=== PATIENT | female | born 1990 | race American Indian/Alaskan Native ===

== ENCOUNTER 2020-07-21 09:23 | Inpatient (IN) | payer MEDICAID ==
--- NOTE | 2020-07-14 12:39 | History and Physical Report ---
History of Present Illness Date of examination: 07/14/20 History of present illness: PT is a who will be at 39w 3d on 07/21 when she will present for her RLTCS. No significant issues during preg. She was sent to cardiology during preg for possible murmur. Echo was WNL. PT has anemia and low Vit D. GBS posi tive. Past History Past Medical History: other (scoliosis, anemia during preg.) Past Surgical History: section Social history: no significant social history - Obstetrical History Expected Date of Delivery: 07/25/20 Actual Gestation: 38 Week(s) 3 Day(s) Hx # Term Pregnancies: 1 Spontaneous Abortions: 3 Number of Living Children: 1 Medications and Allergies Allergies Allergy/AdvReac Type Severity Reaction Status Date / Time Penicillins Allergy Hives Verified 07/07/20 15:50 Review of Systems All systems: negative (except HPI) - Physical Exam Cardiovascular: Regular rate Lungs: Positive: Clear to auscultation, Normal air movement - Obstetrical FHR comments: 150s Results All other labs normal. Assessment and Plan - Patient Problems (1) Previous delivery affecting Status: Acute Plan to address problem: PT for RTLCS on 07/21.
[2020-07-21] MEDS ORDERED: METOCLOPRAMIDE 10 MG/2 ML INJ IV SCH (10:30)
[2020-07-21] MEDS ORDERED: FAMOTIDINE 20 MG/2 ML INJ IV SCH (10:30)
[2020-07-21] MEDS ORDERED: BICITRA ORAL LIQD 30ML PO ONE (10:35)
[2020-07-21] MEDS ORDERED: FAMOTIDINE 20 MG/2 ML INJ IV ONE (10:35)
[2020-07-21] MEDS ORDERED: METOCLOPRAMIDE 10 MG/2 ML INJ IV ONE (10:35)
[2020-07-21] MEDS ORDERED: OXYTOCIN 20 UNIT/1000ML DRIP 20 UNITS/1,000 ML BAG IV SCH ×3 (11:00→14:00)
[2020-07-21] MEDS ORDERED: ceFAZolin/Water 2 GM/20 ML 2 GM/20 ML SYRINGE IV NR ×2 (11:00)
[2020-07-21] MEDS ORDERED: LACTATED RINGERS 1,000 ML IV SCH (11:00)
[2020-07-21 11:27] LABS: Basophils # (Auto) 0.1 K/mm3 (0.0-0.1); Basophils % (Auto) 1.2 % (0.0-1.8); Eosinophils # (Auto) 0.1 K/mm3 (0.0-0.4); Lymphocytes # (Auto) 2.3 K/mm3 (1.2-5.4); Lymphocytes % (Auto) 27.6 % (13.4-35.0); Mean Corpuscular HGB Conc 31 % (30-34); Monocytes # (Auto) 0.8 K/mm3 (0.0-0.8); Monocytes % (Auto) 9.9 % (0.0-7.3); Platelet Count 322 K/mm3 (140-440); Red Blood Count 4.79 M/mm3 (3.65-5.03); Red Cell Distribution Width 19.4 % (13.2-15.2)
[2020-07-21 11:28] LABS: Mean Corpuscular Volume 67 fl (79-97)
[2020-07-21] MEDS ORDERED: WATER FOR IRRIG STERILE 1,500 ML BOTTLE IR ONE ×2 (11:30→12:30)
[2020-07-21] MEDS ORDERED: SODIUM CHLORIDE 0.9% IRR 1,500 ML BOTTLE IR ONE ×2 (11:30→12:30)
--- NOTE | 2020-07-21 11:32 | Anesthesia Day of Surgery ---
Anesthesia Day of Surgery - Day of Surgery Patient Examined: Yes Patient H&P Reviewed: Yes Patient is NPO: Yes Beta Blockers: No Cardiac Clearance: No Pulmonary Clearance: No Edmond's Test: N/A
--- NOTE | 2020-07-21 11:36 | Anesthesia Consultation ---
Anesthesia Consult and Med Hx Date of service: 07/21/20 - Airway Anesthetic Teeth Evaluation: Poor ROM Head & Neck: Adequate Mental/Hyoid Distance: Adequate Mallampati Class: Class III Intubation Access Assessment: Probably Good - Pulmonary Exam CTA: Yes - Cardiac Exam Cardiac Exam: RRR - Pre-Operative Health Status ASA Pre-Surgery Classification: ASA3 Proposed Anesthetic Plan: Spinal - Pre-Anesthesia Comment Pre-Anesthesia Comments: csectionx 1, no anesthesia complications 2018 - Pulmonary Hx Smoking: No Hx Asthma: No Hx Respiratory Symptoms: No SOB: No COPD: No Home Oxygen Therapy: No Hx Pneumonia: No (nonproductive cough for 1 month) Hx Sleep Apnea: No - Cardiovascular System Hx Hypertension: No Hx Coronary Artery Disease: No Hx Heart Attack/AMI: No Hx Angina: No Hx Percutaneous Transluminal Coronary Angioplasty (PTCA): No Hx Cardia Arrhythmia: No Hx Pacemaker: No Hx Internal Defibrillator: No Hx Valvular Heart Disease: No Hx Heart Murmur: Yes (echo WNL 05/2019) Hx Peripheral Vascular Disease: No - Central Nervous System Hx Neuromuscular Disorder: Yes (numbness and tingling right leg ) Hx Seizures: No CVA: No Hx Back Pain: Yes Hx Psychiatric Problems: No - Gastrointestinal Hx Ulcer: No Hx Gastroesophageal Reflux Disease: Yes - Endocrine Hx Renal Disease: No Hx End Stage Renal Disease: No Hx Cirrhosis: No Hx Liver Disease: No Hx Insulin Dependent Diabetes: No Hx Non-Insulin Dependent Diabetes: No Hx Thyroid Disease: No Hx Hypothyroidism: No Hx Hyperthyroidism: No - Hematic Hx Anemia: No Hx Sickle Cell Disease: No - Other Systems Hx Alcohol Use: No Hx Substance Use: No Hx Cancer: No Hx Obesity: Yes
[2020-07-21] MEDS ORDERED: HYDROmorphone 1 MG/1 ML INJ IV PRN (11:38)
[2020-07-21] MEDS ORDERED: NALOXONE 0.4 MG/1 ML INJ IV PRN ×2 (11:38→13:52)
[2020-07-21] MEDS ORDERED: ONDANSETRON 4 MG/2 ML INJ IV PRN ×2 (11:38→13:54)
[2020-07-21] MEDS ORDERED: DEXMEDETOMIDINE 200 MCG/2 ML VIAL IV ONE (12:02)
[2020-07-21] MEDS: LACTATED RINGERS 1,000 ML IV SCH ×3 (12:07→20:47)
[2020-07-21] MEDS ORDERED: PHENYLEPHRINE/NS 1,000 MCG/10 ML SYRINGE (OR USE) IV ONE (12:52)
[2020-07-21] MEDS ORDERED: GENTAMICIN/NS 80 MG/100 ML 100 ML IV SCH ×2 (13:00)
[2020-07-21] MEDS ORDERED: LACTATED RINGERS 1,000 ML ONE (13:39)
[2020-07-21] MEDS ORDERED: WITCH HAZEL/ GLYCERIN PAD TP PRN (13:52)
[2020-07-21] MEDS ORDERED: KETOROLAC 30 MG/1 ML INJ IV PRN (13:52)
[2020-07-21] MEDS ORDERED: LANOLIN/ZINC/DIMETHICONE (LANSINOH) 7 GM TP PRN (13:52)
--- NOTE | 2020-07-21 13:52 | Procedure Note ---
OB Delivery Note - Delivery Date of Delivery: 07/21/20 Surgeon: JUSTIN AJ Estimated blood loss: other (800 cc) - Section Preop diagnosis: repeat Postop diagnosis: same section procedure: section, repeat low transverse Disposition: PACU Complications: none Narrative: Indication: 30-year-old at 39 weeks and 3 days today is here for scheduled repeat low-transverse . Findings: Normal uterus, tubes and ovaries. Light meconium fluid. No nuchal cord. No significant intra-abdominal scarring. Mild subcutaneous tissue scarring Procedure: Patient taken to the operating room and prepped and draped in the usual fashion. Pfannenstiel skin incision was made and carried down to the underlying fascia. Fascia was incised and the incision was extended bilaterally. Rectus fascia dissected off the rectus muscle both superiorly and inferiorly. Peritoneum identified tented up and entered. Peritoneal incision extended superiorly and inferiorly with good visualization of the bladder. Bladder blade was placed. Uterine incision was made and the incision was extended bilaterally. The baby was delivered from in the typical vertex fashion. Baby bulb suctioned at the incision site and again after delivery. Cord was delayed clamped and cut and handed off to waiting team. The placenta was delivered spontaneously. The uterus was exteriorized and cleared of all clots and debris. Uterine incision closed with 0 Vicryl in a running locked fashion followed by a second imbricating layer of 0 Vicryl. Good hemostasis was noted. Her urine was clear. Uterus tubes and ovaries were returned to the abdominal cavity. Gutters were cleared of all clots and debris and the pelvis was well irrigated. Good hemostasis noted. Interceed placed over the uterine incision and over the lower uterine segment in the midline. Attention was turned to the rectus fascia which was reapproximated with 0 Vicryl in a running fashion. Subcutaneous tissue was irrigated and reapproximated with 2-0 Vicryl in a running fashion. Skin was closed with 4-0 Vicryl in a subcuticular fashion followed by Dermabond. The procedure was concluded at this point and the patient tolerated the procedure well. All instrument and lap counts were correct. - Infant A at 1 minute: 8 at 5 minutes: 9 Infant Gender: Male
[2020-07-21] MEDS ORDERED: SIMETHICONE 80 MG CHEW TAB PO PRN (13:54)
[2020-07-21] MEDS ORDERED: SENNOSIDES 8.6 MG TAB PO PRN (13:54)
[2020-07-21] MEDS: oxyCODONE /ACETAMINOPHEN 5-325MG TAB PO PRN (19:01)
[2020-07-22] MEDS: oxyCODONE /ACETAMINOPHEN 5-325MG TAB PO PRN ×3 (00:08→20:43)
[2020-07-22] MEDS: LACTATED RINGERS 1,000 ML IV SCH (04:13)
--- NOTE | 2020-07-22 08:42 | Post Anesthesia Evaluation ---
- Post Anesthesia Evaluation Patient Participated: Yes Airway Patent: Yes Stable Respiratory Function: Yes Nausea/Vomiting: No Temp > 96.8F: Yes Pain Manageable: Yes Adequeate Hydration: Yes Anesthesia Complications: No Block Receding Appropriately: Yes Patient on Ventilator: No
[2020-07-22 08:57] LABS: Hematocrit 31.7 % (30.3-42.9); Hemoglobin 9.6 gm/dl (10.1-14.3)
[2020-07-22] MEDS ORDERED: FERROUS SULFATE 325 MG TAB PO ONE (09:53)
--- NOTE | 2020-07-22 11:49 | Progress Note ---
Assessment and Plan A: day 1 S/P repeat LTCS. Anemia. P: Supplement with iron; encouraged ambulation; advance diet when passing gas. Subjective - Subjective Date of service: 07/22/20 Principal diagnosis: /postop day 1 Interval history: /postop day 1 S/P repeat LTCS. Patient reports: appetite normal, voiding normally, pain well controlled, ambulating normally, no dizzy ambulation, no nauseated [place]: doing well Objective - Vital Signs Latest vital signs: Vital Signs Temp Pulse Resp BP BP BP Pulse Ox 07/22/20 08:08 98.4 F 91 H 18 114/59 100 07/22/20 04:19 98.2 F 90 18 109/64 97 07/22/20 00:05 98.7 F 78 18 106/73 100 07/21/20 19:50 97.9 F 92 H 20 112/66 100 07/21/20 16:00 20 07/21/20 15:35 98.5 F 82 20 118/65 99 07/21/20 14:56 14 102/85 100 07/21/20 14:50 69 14 103/53 100 07/21/20 14:35 65 14 119/75 100 07/21/20 14:20 72 14 100/79 100 07/21/20 14:05 70 14 117/69 100 07/21/20 14:00 75 14 106/69 100 07/21/20 13:57 97.5 F L 76 17 104/47 99 07/21/20 11:52 83 100 07/21/20 11:47 86 99 Intake and Output 07/21/20 07/22/20 07/22/20 23:59 07:59 15:59 Intake Total 1409.167 480 Output Total 350 2500 1050 Balance -350 -1090.833 -570 Intake: IV 929.167 Lactated Ringers 1,000 ml 929.167 @ 125 mls/hr IV DIRECT JACQUELINE Rx#:[id number] Oral 480 240 Intake, Free Water 240 Output: Urine 350 2500 1050 Indwelling Catheter 350 1000 Uretheral (Hernandez) 1000 Void 500 1050 Other: Total, Intake Amount 240 240 Total, Output Amount 350 500 450 # Voids Void 1 - Exam Cardiovascular: Present: Regular rate, Normal S1, Normal S2 Lungs: Present: Clear to auscultation Abdomen: Present: normal appearance, soft, normal bowel sounds. Absent: distention, tenderness, guarding, rigidity Uterus: Present: normal, firm, fundal height below umbilicus. Absent: bogginess, tenderness Extremities: Present: normal. Absent: tenderness, edema Incision: Present: normal, dry, dressed - Labs Labs: Abnormal lab results 07/22/20 Range/Units 08:09 Hgb 9.6 L (10.1-14.3) gm/dl
[2020-07-22] MEDS: IBUPROFEN 800 MG TAB PO PRN (13:03)
[2020-07-22] MEDS: MAGNESIUM HYDROXIDE (MOM) ORAL LIQD UDC PO PRN (17:28)
[2020-07-23] MEDS: oxyCODONE /ACETAMINOPHEN 5-325MG TAB PO PRN ×3 (03:08→17:44)
[2020-07-23] MEDS: IBUPROFEN 800 MG TAB PO PRN ×2 (08:01→22:15)
[2020-07-23] MEDS: MAGNESIUM HYDROXIDE (MOM) ORAL LIQD UDC PO PRN (09:53)
[2020-07-23] MEDS: FERROUS SULFATE 325 MG TAB PO SCH (09:53)
--- NOTE | 2020-07-23 15:58 | Progress Note ---
Assessment and Plan A: /postop day 2 S/P repeat LTCS. Anemia. P: Continue iron supplementation. Anticipate discharge home tomorrow if patient continues to do well. Subjective - Subjective Date of service: 07/23/20 Principal diagnosis: /postop day 2 S/P repeat LTCS Interval history: /postop day 2 S/P repeat LTCS. Patient reports: appetite normal, voiding normally, pain well controlled, flatus, ambulating normally, no dizzy ambulation, no nauseated [place]: doing well Objective - Vital Signs Latest vital signs: Vital Signs Temp Pulse Resp BP Pulse Ox 07/23/20 11:37 20 07/23/20 08:01 18 07/23/20 07:31 97.9 F 82 20 116/73 97 07/23/20 00:49 98.1 F 87 20 122/71 100 07/22/20 17:09 97.9 F 79 20 102/67 95 Intake and Output 07/22/20 07/23/20 07/23/20 23:59 07:59 15:59 Intake Total 480 240 360 Balance 480 240 360 Intake: Oral 240 240 360 Intake, Free Water 240 Other: Total, Intake Amount 240 240 240 # Voids Void 1 1 - Exam Cardiovascular: Present: Regular rate, Normal S1, Normal S2 Lungs: Present: Clear to auscultation Abdomen: Present: normal appearance, soft, normal bowel sounds. Absent: distention, tenderness, guarding, rigidity Uterus: Present: normal, firm, fundal height below umbilicus. Absent: bogginess, tenderness Extremities: Present: normal. Absent: tenderness, edema Incision: Present: normal, dry, intact
[2020-07-24] MEDS: oxyCODONE /ACETAMINOPHEN 5-325MG TAB PO PRN (05:01)
--- NOTE | 2020-07-24 07:37 | Progress Note ---
Assessment and Plan A: /postop day 3 S/P repeat LTCS. Anemia. P: Discharge patient home today. Discussed with patient discharge instructions and warning signs. Advised patient re: activity restrictions and care of incision. Advised patient to avoid IC, lifting, housework, stair climbing, tub baths (pt. may take showers). Advised patient to continue taking her vitamin and iron supplement at home. Advised pt. to follow up at [facility] in 1 week for incision check. Patient voiced understanding of all instructions. Subjective - Subjective Date of service: 07/24/20 Principal diagnosis: /postop day 3 S/P repeat LTCS Interval history: /postop day 3 S/P repeat LTCS. Patient reports: appetite normal, voiding normally, pain well controlled, flatus, ambulating normally, no dizzy ambulation, no nauseated [place]: doing well Objective - Vital Signs Latest vital signs: Vital Signs Temp Pulse Resp BP Pulse Ox 07/23/20 23:49 98.4 F 84 18 116/64 98 07/23/20 17:44 16 07/23/20 16:29 98.3 F 90 20 114/61 98 07/23/20 11:37 20 07/23/20 08:01 18 Intake and Output 07/23/20 07/23/20 07/24/20 15:59 23:59 07:59 Intake Total 360 240 360 Balance 360 240 360 Intake: Oral 360 240 Intake, Free Water 360 Other: Total, Intake Amount 240 240 # Voids Void 1 1 1 - Exam Cardiovascular: Present: Regular rate, Normal S1, Normal S2, No murmurs Lungs: Present: Clear to auscultation Abdomen: Present: normal appearance, soft, normal bowel sounds. Absent: distention, tenderness, guarding, rigidity Uterus: Present: normal, firm, fundal height below umbilicus. Absent: bogginess, tenderness Extremities: Present: normal. Absent: tenderness, edema Incision: Present: normal, dry, intact
--- NOTE | 2020-07-24 07:39 | Discharge Summary ---
Providers - Providers Date of Admission: 07/21/20 09:23 Date of discharge: 07/24/20 Attending physician: JUSTIN AJ Primary care physician: JUSTIN AJ Hospitalization Reason for admission: section Delivery: Procedure: repeat low transverse Incision: normal, dry, intact Other procedures: none complications: none Discharge diagnosis: IUP at term delivered baby: male Pertinent studies: Labs Hospital course: Normal hospital course. Condition at discharge: Good Disposition: DC-01 TO HOME OR SELFCARE - Discharge Diagnoses (1) Term delivered Status: Acute Plan - Discharge Medications Prescriptions: Ibuprofen [Motrin 800 MG tab] 800 mg PO Q6H PRN #30 tablet PRN Reason: Pain, Mild (1-3) oxyCODONE /ACETAMINOPHEN [Percocet 5/325 mg] 1 tab PO Q6H PRN #30 tablet PRN Reason: Pain, Moderate (4-6) - Provider Discharge Summary Activity: routine, no sex for 6 weeks, no heavy lifting 4 weeks, no strenuous exercise Diet: routine Instructions: routine Additional instructions: Continue taking your vitamin and iron supplement at home. Call your doctor immediately for: * Fever > 100.5 * Heavy vaginal bleeding ( >1 pad per hour) * Severe persistent headache * Shortness of breath * Reddened, hot, painful area to leg or breast * Drainage or odor from incision. * Keep incision clean and dry at all times and follow doctor's instructions regarding bathing/showering - Follow up plan Follow up: JUSTIN AJ MD [Primary Care Provider] - 7 Days
[2020-07-24] MEDS: FERROUS SULFATE 325 MG TAB PO SCH (09:40)
[2020-07-24] MEDS: MAGNESIUM HYDROXIDE (MOM) ORAL LIQD UDC PO PRN (09:41)
[2020-07-24 11:45] VITALS: BP 133/72
== END 2020-07-24 12:00 | disposition home or self-care (01) | DRG 766 ==
LOC: APU 09:23 → OB 15:30
PROVIDERS: ADMIT Obstetrics & Gynecology; ATTEND Obstetrics & Gynecology
PROC: 10D00Z1 Extraction of Products of Conception, Low, Open Approach (ICD-10-PCS; principal; 2020-07-21)
DX: O34.211 Maternal care for low transverse scar from previous cesarean delivery (principal); Z88.0 Allergy status to penicillin; O99.824 Streptococcus B carrier state complicating childbirth; O99.62 Diseases of the digestive system complicating childbirth; O99.214 Obesity complicating childbirth; K21.9 Gastro-esophageal reflux disease without esophagitis; O90.81 Anemia of the puerperium; E66.9 Obesity, unspecified; Z3A.39 39 weeks gestation of pregnancy; Z37.0 Single live birth; D64.9 Anemia, unspecified
CPT/HCPCS: 36415; 85014; 85018; 85025; 86850; 86900; 86901; G0378; C1765; J1580; J1885; J2370; J2590; J2765; J3490; J7120

== ENCOUNTER 2020-08-04 14:41 | Emergency (ER) | payer MEDICAID ==
--- NOTE | 2020-08-04 16:51 | Emergency Department Report ---
ED General Adult HPI - General Chief complaint: Sore Throat Stated complaint: THROAT PAIN Time Seen by Provider: 08/04/20 15:42 Source: patient Mode of arrival: Ambulatory Limitations: No Limitations - History of Present Illness Initial comments: 30-year-old -[place] female patient presents with complaints of cough x3 weeks. Patient states she spoke with her PCP today and was instructed to come into the ED for chest x-ray. She denies any hemoptysis, fever/chills/sweats, chest pain, shortness of breath, leg pain/swelling, recent long travel, hormone use, or history of DVT/PEs/cancer. Patient does report that she had a 2 weeks ago, however her symptoms started 1 week prior. She denies any known recent sick contacts. She has not tried any OTC cough medication. Patient also denies any history of smoking or asthma, however states she has history of recurrent bronchitis Severity scale (0 -10): 0 - Related Data Previous Rx's Medication Instructions Recorded Last Taken Type Ibuprofen [Motrin 800 MG tab] 800 mg PO Q6H PRN #30 tablet 07/21/20 Unknown Rx oxyCODONE /ACETAMINOPHEN [Percocet 1 tab PO Q6H PRN #30 tablet 07/21/20 Unknown Rx 5/325 mg] Benzonatate 200 mg PO TID PRN #30 capsule 08/04/20 Unknown Rx Loratadine 10 mg PO QAM #10 tablet 08/04/20 Unknown Rx Allergies Allergy/AdvReac Type Severity Reaction Status Date / Time Penicillins Allergy Hives Verified 07/07/20 15:50 ED Review of Systems ROS: Stated complaint: THROAT PAIN Other details as noted in HPI Constitutional: denies: chills, diaphoresis, fever, malaise, weakness ENT: denies: throat pain Respiratory: cough. denies: shortness of breath Cardiovascular: denies: chest pain, edema, syncope Endocrine: denies: excessive sweating Musculoskeletal: denies: back pain, joint swelling Neurological: denies: headache Hematological/Lymphatic: denies: swollen glands ED Past Medical Hx - Past Medical History Previous Medical History?: No Hx Hypertension: No Hx Heart Attack/AMI: No Hx Congestive Heart Failure: No Hx Diabetes: No Hx Deep Vein Thrombosis: No Hx Liver Disease: No Hx Renal Disease: No Hx Sickle Cell Disease: No Hx Seizures: No Hx Asthma: No Hx COPD: No Hx HIV: No - Surgical History Past Surgical History?: No Hx Pacemaker: No Hx Internal Defibrillator: No - Social History Smoking Status: Never Smoker Substance Use Type: None - Medications Home Medications: Home Medications Medication Instructions Recorded Confirmed Last Taken Type Ibuprofen [Motrin 800 MG tab] 800 mg PO Q6H PRN #30 tablet 07/21/20 Unknown Rx oxyCODONE /ACETAMINOPHEN [Percocet 1 tab PO Q6H PRN #30 tablet 07/21/20 Unknown Rx 5/325 mg] Benzonatate 200 mg PO TID PRN #30 capsule 08/04/20 Unknown Rx Loratadine 10 mg PO QAM #10 tablet 08/04/20 Unknown Rx ED Physical Exam - General Limitations: No Limitations General appearance: alert, in no apparent distress - Head Head exam: Present: atraumatic, normocephalic - Eye Eye exam: Present: normal appearance. Absent: scleral icterus - ENT ENT exam: Present: mucous membranes moist - Neck Neck exam: Present: normal inspection - Respiratory Respiratory exam: Present: normal lung sounds bilaterally. Absent: respiratory distress - Cardiovascular Cardiovascular Exam: Present: regular rate, normal rhythm. Absent: systolic murmur, diastolic murmur, rubs, gallop - GI/Abdominal GI/Abdominal exam: Present: soft. Absent: distended, tenderness, guarding, rebound, rigid - Extremities Exam Extremities exam: Present: normal inspection. Absent: calf tenderness (No swelling or pain noted bilaterally to the legs) - Back Exam Back exam: Present: normal inspection - Neurological Exam Neurological exam: Present: alert, oriented X3, normal gait - Psychiatric Psychiatric exam: Present: normal affect, normal mood - Skin Skin exam: Present: warm, dry, intact, normal color. Absent: rash, cyanosis, diaphoretic, erythema ED Course Vital Signs 08/04/20 16:12 Temperature 97.7 F Pulse Rate 92 H Respiratory 20 Rate Blood Pressure 130/71 [Left] O2 Sat by Pulse 100 Oximetry ED Medical Decision Making - Radiology Data Radiology results: report reviewed CHEST 2 VIEWS INDICATION / CLINICAL INFORMATION: cough. COMPARISON: None available. FINDINGS: SUPPORT DEVICES: None. HEART / MEDIASTINUM: No significant abnormality. LUNGS / PLEURA: No significant pulmonary or pleural abnormality. .No pneumothorax. ADDITIONAL FINDINGS: No significant additional findings. IMPRESSION: 1. No acute findings. - Medical Decision Making Patient here with complaints of cough x3 weeks. She reports history of recurrent bronchitis. She does admit to having a 2 weeks ago, however her symptoms started 1 week prior and have not worsened since. She denies shortness of breath. Her exam is benign. Lungs are clear. Chest x-ray is negative for abnormalities. Will treat cough symptomatically and recommend follow-up with PCP in 3 to 5 days. Vitals are normal, she is well-appearing, and she is stable for discharge home. Strict return precautions were discussed in detail with patient who verbalized understanding. Critical care attestation.: If time is entered above; I have spent that time in minutes in the direct care of this critically ill patient, excluding procedure time. ED Disposition Clinical Impression: Cough Disposition: DC-01 TO HOME OR SELFCARE Is pt being admited?: No Condition: Stable Instructions: Acute Cough (ED) Prescriptions: Benzonatate 200 mg PO TID PRN #30 capsule PRN Reason: Cough Loratadine 10 mg PO QAM #10 tablet Referrals: PRIMARY CARE, [Primary Care Provider] - 3-5 Days
--- NOTE | 2020-08-04 17:11 | XRay Report ---
CHEST 2 VIEWS INDICATION / CLINICAL INFORMATION: cough. COMPARISON: None available. FINDINGS: SUPPORT DEVICES: None. HEART / MEDIASTINUM: No significant abnormality. LUNGS / PLEURA: No significant pulmonary or pleural abnormality. .No pneumothorax. ADDITIONAL FINDINGS: No significant additional findings. IMPRESSION: 1. No acute findings. Signer Name: Clint Monge MD Signed: 08/04/2020 5:07 PM Workstation Name: [id number]
[2020-08-04 18:38] VITALS: BP 130/66
== END 2020-08-04 18:37 | disposition home or self-care (01) ==
LOC: ED 14:41
DX: R05 Cough (principal); R07.0 Pain in throat; Z79.1 Long term (current) use of non-steroidal anti-inflammatories (NSAID); Z79.899 Other long term (current) drug therapy; Z88.0 Allergy status to penicillin
CPT/HCPCS: 71046

== ENCOUNTER 2022-03-20 15:32 | Emergency (ER) | payer MEDICAID ==
--- NOTE | 2022-03-20 17:07 | Emergency Department Report ---
ED HPI - General Chief complaint: High BP Stated complaint: HIGH BLOOD PRESSURE/PAIN Source: patient Mode of arrival: Ambulatory Limitations: No Limitations - History of Present Illness Initial comments: 32-year-old female presents to the ED complaining of abdominal pain and a headache. Patient is 17 weeks and stated that she called her [employer] ATTEND[employer] who told her to come to the ED for eclampsia due to high risk . Patient states that she current been followed by [employer] [facility]. Patient stated that her blood pressure was currently 136/81 and was informed to come to the ED to be further evaluate. Patient is alert and oriented x3. 6 Para 3 A 3. Patient is alert and oriented x3. No acute distress noted no ill appearance noted. Patient denies any vaginal bleeding at present. MD Complaint: abdominal pain -: This morning Severity scale (0 -10): 2 Consistency: intermittent Improves with: none Worsens with: none Associated symptoms: denies other symptoms Vaginal bleeding: none OB History - Current : no complications OB History - Previous Pregnancies: miscarriage - Related Data : 6 Para: 3 Ab: 3 Previous Rx's Medication Instructions Recorded Last Taken Type Ibuprofen [Motrin 800 MG tab] 800 mg PO Q6H PRN #30 tablet 07/21/20 Unknown Rx oxyCODONE /ACETAMINOPHEN [Percocet 1 tab PO Q6H PRN #30 tablet 07/21/20 Unknown Rx 5/325 mg] Benzonatate 200 mg PO TID PRN #30 capsule 08/04/20 Unknown Rx Loratadine 10 mg PO QAM #10 tablet 08/04/20 Unknown Rx Nitrofurantoin [place]/M-Cryst 100 mg PO Q12HR 10 Days #20 capsule 03/20/22 Unknown Rx [Macrobid CAP] Allergies Allergy/AdvReac Type Severity Reaction Status Date / Time Penicillins Allergy Hives Verified 07/07/20 15:50 ED Review of Systems ROS: Stated complaint: HIGH BLOOD PRESSURE/PAIN Other details as noted in HPI Constitutional: denies: chills, fever Eyes: denies: eye pain, eye discharge, vision change ENT: denies: ear pain, throat pain Respiratory: denies: cough, shortness of breath, wheezing Cardiovascular: denies: chest pain, palpitations Endocrine: no symptoms reported Gastrointestinal: denies: abdominal pain, nausea, diarrhea Genitourinary: denies: urgency, dysuria, discharge Musculoskeletal: denies: back pain, joint swelling, arthralgia Skin: denies: rash, lesions Neurological: denies: headache, weakness, paresthesias Psychiatric: denies: anxiety, depression Hematological/Lymphatic: denies: easy bleeding, easy bruising ED Past Medical Hx - Past Medical History Hx Hypertension: No Hx Heart Attack/AMI: No Hx Congestive Heart Failure: No Hx Diabetes: No Hx Deep Vein Thrombosis: No Hx Liver Disease: No Hx Renal Disease: No Hx Sickle Cell Disease: No Hx Seizures: No Hx Asthma: No Hx COPD: No Hx HIV: No - Surgical History Hx Pacemaker: No Hx Internal Defibrillator: No - Social History Smoking Status: Never Smoker Substance Use Type: None - Medications Home Medications: Home Medications Medication Instructions Recorded Confirmed Last Taken Type Ibuprofen [Motrin 800 MG tab] 800 mg PO Q6H PRN #30 tablet 07/21/20 Unknown Rx oxyCODONE /ACETAMINOPHEN [Percocet 1 tab PO Q6H PRN #30 tablet 07/21/20 Unknown Rx 5/325 mg] Benzonatate 200 mg PO TID PRN #30 capsule 08/04/20 Unknown Rx Loratadine 10 mg PO QAM #10 tablet 08/04/20 Unknown Rx Nitrofurantoin [place]/M-Cryst 100 mg PO Q12HR 10 Days #20 capsule 03/20/22 Unkn own Rx [Macrobid CAP] ED Physical Exam - General Limitations: No Limitations General appearance: alert, in no apparent distress - Head Head exam: Present: atraumatic, normocephalic - Eye Eye exam: Present: normal appearance - ENT ENT exam: Present: mucous membranes moist - Neck Neck exam: Present: normal inspection - Respiratory Respiratory exam: Present: normal lung sounds bilaterally. Absent: respiratory distress - Cardiovascular Cardiovascular Exam: Present: regular rate, normal rhythm. Absent: systolic murmur, diastolic murmur, rubs, gallop - GI/Abdominal GI/Abdominal exam: Present: soft, normal bowel sounds - Extremities Exam Extremities exam: Present: normal inspection - Back Exam Back exam: Present: normal inspection - Neurological Exam Neurological exam: Present: alert, oriented X3 - Psychiatric Psychiatric exam: Present: normal affect, normal mood - Skin Skin exam: Present: warm, dry, intact, normal color. Absent: rash ED Course Vital Signs 03/20/22 03/20/2222 15:39 17:57 18:59 Temperature 98.1 F Pulse Rate 107 H 85 Respiratory 18 16 Rate Blood Pressure 142/68 Blood Pressure 121/65 [Left] O2 Sat by Pulse 98 98 99 Oximetry ED Medical Decision Making - Lab Data Result diagrams: 03/20/22 16:41 - Medical Decision Making 32-year-old female presents to the ED complaining of abdominal pain and a headache. Patient is 17 weeks and stated that she called her [employer] C[employer] ATTENDANT who told her to come to the ED for eclampsia due to high risk . Patient states that she current been followed by [employer] [facility]. Patient stated that her blood pressure was currently 136/81 and was informed to come to the ED to be further evaluate. Patient is alert and oriented x3. 6 Para 3 A 3. Patient is alert and oriented x3. No acute distress noted no ill appearance noted. Patient denies any vaginal bleeding at present. Rechecked the patient is resting quietly quietly and comfortable and feeling better. I discussed the results of diagnostic study, my clinical impression and the plan for further treatment with the patient. Patient agrees with plan and discharge at this present time. All question addressed. I have given the patient instruction regarding a diagnosis ,expectation ,follow- up and return precaution. I explained to the patient that emergent condition may arise and to return to the ED for new worsen and any new persisting condition. I have explained the importance of following up with the primary care physician or referral physician listed below has instructed. The patient verbalized understanding of discharge instruction. Abnormal Lab Results 03/20/22 Unknown Urine Color Yellow Urine Turbidity Slightly-cloudy Urine pH 5.0 Ur Specific [place] 1.026 Urine Protein 30 mg/dl Urine Glucose (UA) Neg Urine Ketones 20 Urine Blood Neg Urine Nitrite Pos Urine Bilirubin Neg Urine Urobilinogen < 2.0 Ur Leukocyte Esterase Neg Urine WBC (Auto) 2.0 Urine RBC (Auto) 1.0 U Epithel Cells (Auto) 10.0 Urine Mucus 3+ Critical care attestation.: If time is entered above; I have spent that time in minutes in the direct care of this critically ill patient, excluding procedure time. ED Disposition Clinical Impression: Abdominal pain affecting , Acute urinary tract infection Hypertension affecting Qualifiers: Trimester: second trimester Qualified Code(s): O16.2 - Unspecified maternal hypertension, second trimester Disposition: HOME / SELF CARE / HOMELESS Is pt being admited?: No Does the pt Need Aspirin: No Condition: Stable Instructions: Abdominal Pain During , [id number], Hypertension During , [id number], and Urinary Tract Infection, Hypertension (ED) Additional Instructions: Drink plenty of fluids Follow-up with my life/halfway house counselor Return to the ED for any worsening symptoms Prescriptions: Nitrofurantoin [place]/M-Cryst [Macrobid CAP] 100 mg PO Q12HR 10 Days #20 capsule Referrals: PRIMARY CARE, [Primary Care Provider] - 3-5 Days Forms: Work/School Release Form(ED) Time of Disposition: 18:14
[2022-03-20 17:24] LABS: Bilirubin,Urine NEG (Negative); Blood,Urine NEG (Negative); Color,Urine Yellow (Yellow); Mucus,Urine 3+ /HPF; Urobilinogen,Urine < 2.0 mg/dL (<2.0)
[2022-03-20 17:59] VITALS: BP 121/65
[2022-03-20 18:19] LABS: Alanine Aminotransferase 12 units/L (7-56); Blood Urea Nitrogen 5 mg/dL (7-17); Calcium 9.5 mg/dL (8.4-10.2); Hemolysis Index 0
[2022-03-20 18:20] LABS: BUN/Creatinine Ratio 8; Bilirubin,Direct < 0.2 mg/dL (0-0.2)
== END 2022-03-20 19:02 | disposition home or self-care (01) ==
LOC: ED 15:32
DX: O23.42 Unspecified infection of urinary tract in pregnancy, second trimester (principal); O26.892 Other specified pregnancy related conditions, second trimester; R10.9 Unspecified abdominal pain; O16.2 Unspecified maternal hypertension, second trimester; Z88.0 Allergy status to penicillin
CPT/HCPCS: 36415; 80048; 80076; 81001; 82150; 83690; 84702; 99283

== ENCOUNTER 2022-07-15 21:03 | Outpatient (CLI) | payer MEDICAID ==
--- NOTE | 2022-07-15 22:51 | Ultrasound Report ---
OB ultrasound INDICATION: Gestational diabetes FINDINGS: BPD measures 8.76 cm measuring 35 weeks 3 days. Head circumference 32.03 cm measuring 36 we eks 1 day. Abdominal circumference 31.18 cm measuring 35 weeks 1 day. Femoral length 6.63 cm measurin g 34 weeks 1 day. Ultrasound age 35 weeks 2 days. weight 25 64 g. YVES measures 10.7 cm. h eart rate 1 35 bpm. Anterior placenta. Single image in in cephalic position. IMPRESSION: Live intrauterine measuring 35 weeks 2 days by ultrasound. Signer Name: Edi Raines MD Signed: 07/15/2022 10:46 PM Workstation Name: [id number]
[2022-07-15 23:04] LABS: Basophils # (Auto) 0.1 K/mm3 (0.0-0.1); Basophils % (Auto) 0.9 % (0.0-1.8); Eosinophils # (Auto) 0.1 K/mm3 (0.0-0.4); Hematocrit 28.8 % (30.3-42.9); Lymphocytes # (Auto) 3.7 K/mm3 (1.2-5.4); Lymphocytes % (Auto) 34.5 % (13.4-35.0); Mean Corpuscular HGB Conc 31 % (30-34); Monocytes # (Auto) 0.9 K/mm3 (0.0-0.8); Monocytes % (Auto) 7.9 % (0.0-7.3); Red Blood Count 4.33 M/mm3 (3.65-5.03); Red Cell Distribution Width 19.1 % (13.2-15.2)
[2022-07-15 23:06] LABS: Mean Corpuscular Volume 67 fl (79-97); Platelet Count 296 K/mm3 (140-440)
[2022-07-15 23:57] LABS: Bilirubin,Urine Negative (Negative); Blood,Urine Negative (Negative); Color,Urine Yellow (Yellow); Urobilinogen,Urine < 2.0 mg/dL (<2.0)
[2022-07-16 00:01] LABS: Bacteria,Urine 1+ /HPF (Negative); Mucus,Urine 2+ /HPF
[2022-07-16 00:04] LABS: Creatinine,Urine 244.6 mg/dL (0.1-20.0)
[2022-07-16 00:51] LABS: Alanine Aminotransferase 16 units/L (7-56); Albumin 3.3 g/dL (3.9-5); Blood Urea Nitrogen 6 mg/dL (7-17); Calcium 8.8 mg/dL (8.4-10.2); Hemolysis Index 19; Uric Acid 4.3 mg/dL (3.5-7.6)
[2022-07-16 00:57] LABS: BUN/Creatinine Ratio 12
[2022-07-16 01:03] VITALS: BP 107/52
== END 2022-07-16 01:13 | disposition home or self-care (01) ==
LOC: TRG 21:03 → APU 21:06 → TRG 07-16 01:13
PROVIDERS: ATTEND Obstetrics & Gynecology
DX: O26.893 Other specified pregnancy related conditions, third trimester (principal); R51.9 Headache, unspecified; R42 Dizziness and giddiness; Z3A.34 34 weeks gestation of pregnancy
CPT/HCPCS: 36415; 76816; 80053; 81001; 82570; 82962; 83036; 83615; 84156; 84550; 85025; 87086

== ENCOUNTER 2022-08-01 21:11 | Outpatient (CLI) | payer MEDICAID ==
--- NOTE | 2022-08-02 00:18 | Ultrasound Report ---
ULTRASOUND BIOPHYSICAL PROFILE INDICATION / CLINICAL INFORMATION: YVES,EFW,PLACENTA ABRUPTION. COMPARISON: None available. FINDINGS: BREATHING MOVEMENT = 2 GROSS BODY MOVEMENT = 2 TONE = 2 QUALITATIVE AMNIOTIC FLUID VOLUME = 2 TOTAL BIOPHYSICAL SCORE = /8 AMNIOTIC FLUID INDEX (cm) = 10.6 PRESENTATION: Cephalic. HEART RATE (beats per minute): 126 The biparietal diameter measures 38 weeks and 5 days. The head circumference measures 37 weeks and 2 days. Abdominal circumference measures 36 weeks and 0 days. The femur length measures 37 weeks and 3 days. Estimated weight is 3031 g ultrasound gestational age is 37 weeks and 3 days. The placenta is anterior and right lateral and appears to be grade 1. IMPRESSION: 1. biophysical profile = 07/08 2. Ultrasound gestational age of 37 weeks and 3 days Signer Name: Michael Nolan MD Signed: 08/02/2022 12:14 AM Workstation Name: [employer]
== END 2022-08-02 00:35 | disposition home or self-care (01) ==
LOC: TRG 21:11 → APU 21:13 → TRG 08-02 00:35
PROVIDERS: ATTEND Obstetrics & Gynecology Gynecology
DX: Z34.93 Encounter for supervision of normal pregnancy, unspecified, third trimester (principal); Z3A.38 38 weeks gestation of pregnancy
CPT/HCPCS: 76816; 76819

== ENCOUNTER 2022-08-16 17:04 | Inpatient (IN) | payer MEDICAID ==
[2022-08-16] MEDS ORDERED: LACTATED RINGERS 1,000 ML ONE (17:31)
--- NOTE | 2022-08-16 18:19 | History and Physical Report ---
History of Present Illness Date of examination: 08/16/22 Date of admission: 08/16/22 Chief complaint: Admitted from the office on the advice of BORIS echols PISunday, gestational diabetes. History of present illness: . X 2 prior cesareans. CONSTANCE 08/24/22. Past History Past Medical History: hypertension, diabetes Past Surgical History: section - Obstetrical History Expected Date of Delivery: 08/24/22 Actual Gestation: 38 Week(s) 6 Day(s) : 6 Para: 2 Medications and Allergies Allergies Allergy/AdvReac Type Severity Reaction Status Date / Time Penicillins Allergy Hives Verified 07/07/20 15:50 Home Medications Medication Instructions Recorded Confirmed Last Taken Type Ibuprofen [Motrin 800 MG tab] 800 mg PO Q6H PRN #30 tablet 07/21/20 Unknown Rx oxyCODONE /ACETAMINOPHEN [Percocet 1 tab PO Q6H PRN #30 tablet 07/21/20 Unknown Rx 5/325 mg] Benzonatate 200 mg PO TID PRN #30 capsule 08/04/20 Unknown Rx Loratadine 10 mg PO QAM #10 tablet 08/04/20 Unknown Rx Nitrofurantoin [place]/M-Cryst 100 mg PO Q12HR 10 Days #20 capsule 03/20/22 Unknown Rx [Macrobid CAP] Review of Systems All systems: negative - Vital Signs Vital signs: Vital Signs Pulse Pulse Ox 96 H 100 08/16/22 17:30 08/16/22 17:30 Temp Pulse Resp BP Pulse Ox 98.4 F 88 18 117/74 100 08/16/22 17:58 08/16/22 18:10 08/16/22 17:58 08/16/22 17:32 08/16/22 18:10 - Physical Exam Lungs: Positive: Normal air movement Abdomen: Positive: normal appearance, soft, normal bowel sounds. Negative: tenderness Uterus: Positive: enlarged, normal contour Extremities: Positive: normal - Obstetrical FHR: auscultation normal Results All other labs normal. Assessment and Plan - Patient Problems (1) 38 weeks gestation of Current Visit: Yes Status: Acute (2) Gestational diabetes Current Visit: Yes Status: Acute (3) Previous delivery affecting Current Visit: No Status: Acute (4) PIH ( induced hypertension) Current Visit: Yes Status: Acute Plan to address problem: For repeat delivery.
[2022-08-16] MEDS ORDERED: FAMOTIDINE 20 MG/2 ML INJ IV ONE (18:23)
[2022-08-16] MEDS ORDERED: METOCLOPRAMIDE 10 MG/2 ML INJ IV ONE (18:23)
[2022-08-16] MEDS ORDERED: BICITRA ORAL LIQD 30ML PO ONE (18:23)
[2022-08-16] MEDS ORDERED: LACTATED RINGERS 1,000 ML IV SCH (18:30)
[2022-08-16 18:36] LABS: Basophils % (Auto) 0.6 % (0.0-1.8); Eosinophils # (Auto) 0.1 K/mm3 (0.0-0.4); Eosinophils % (Auto) 0.7 % (0.0-4.3); Hematocrit 32.1 % (30.3-42.9); Hemoglobin 10.1 gm/dl (10.1-14.3); Lymphocytes # (Auto) 2.7 K/mm3 (1.2-5.4); Lymphocytes % (Auto) 31.7 % (13.4-35.0); Mean Corpuscular HGB Conc 32 % (30-34); Monocytes # (Auto) 0.9 K/mm3 (0.0-0.8); Platelet Count 323 K/mm3 (140-440); Red Blood Count 4.96 M/mm3 (3.65-5.03); Red Cell Distribution Width 19.1 % (13.2-15.2)
[2022-08-16 18:39] LABS: Mean Corpuscular Volume 65 fl (79-97)
[2022-08-16] MEDS ORDERED: OXYTOCIN DRIP 30 UNITS/500 ML BAG IV SCH ×2 (19:00→22:00)
[2022-08-16] MEDS ORDERED: ceFAZolin/Water 2 GM/20 ML 2 GM/20 ML SYRINGE IV NR (19:00)
[2022-08-16] MEDS ORDERED: miSOPROStol 200 MCG TAB ONE (19:11)
[2022-08-16] MEDS ORDERED: METHYLERGONOVINE MALEATE 0.2 MG/ML VIAL IM ONE (19:12)
[2022-08-16] MEDS ORDERED: CARBOPROST TROMETHAMINE 250 MCG/1 ML INJ IM ONE (19:12)
[2022-08-16] MEDS ORDERED: ceFAZolin/STERILE WATER 2 GM/20 ML SYRINGE IV ONE (19:55)
[2022-08-16] MEDS ORDERED: WATER FOR IRRIG STERILE 1,500 ML BOTTLE IR ONE (19:55)
[2022-08-16] MEDS ORDERED: SODIUM CHLORIDE 0.9% IRR 1,500 ML BOTTLE IR ONE (19:55)
[2022-08-16] MEDS ORDERED: NALOXONE 0.4 MG/1 ML INJ IV PRN ×2 (21:16→21:25)
[2022-08-16] MEDS ORDERED: MORPHINE 4 MG/1 ML INJ IV PRN ×2 (21:16→21:25)
[2022-08-16] MEDS ORDERED: PROMETHAZINE 25 MG RECT SUPP PR PRN ×2 (21:16→21:25)
[2022-08-16] MEDS ORDERED: HYDROmorphone 1 MG/1 ML INJ IV PRN ×2 (21:16)
[2022-08-16] MEDS ORDERED: PROMETHAZINE 25 MG TAB PO PRN (21:16)
[2022-08-16] MEDS ORDERED: ONDANSETRON 4 MG/2 ML INJ IV PRN ×2 (21:16→21:25)
[2022-08-16] MEDS ORDERED: diphenhydrAMINE 50 MG/ML VIAL IV PRN (21:16)
--- NOTE | 2022-08-16 21:17 | Anesthesia Consultation ---
Anesthesia Consult and Med Hx Date of service: 08/16/22 - Airway Anesthetic Teeth Evaluation: Good ROM Head & Neck: Adequate Mental/Hyoid Distance: Adequate Mallampati Class: Class II Intubation Access Assessment: Probably Good - Pulmonary Exam CTA: Yes - Cardiac Exam Cardiac Exam: RRR - Pre-Operative Health Status ASA Pre-Surgery Classification: ASA2 Proposed Anesthetic Plan: Spinal Nerve Block: Doug Tap - Pulmonary Hx Smoking: No Hx Asthma: No Hx Respiratory Symptoms: No SOB: No COPD: No Home Oxygen Therapy: No Hx Pneumonia: No Hx Sleep Apnea: No - Cardiovascular System Hx Hypertension: No Hx Coronary Artery Disease: No Hx Heart Attack/AMI: No Hx Angina: No Hx Percutaneous Transluminal Coronary Angioplasty (PTCA): No Hx Cardia Arrhythmia: No Hx Pacemaker: No Hx Internal Defibrillator: No Hx Valvular Heart Disease: No Hx Heart Murmur: Yes (echo WNL 05/2019) Hx Peripheral Vascular Disease: No - Central Nervous System Hx Neuromuscular Disorder: Yes (numbness and tingling right leg ) Hx Seizures: No CVA: No Hx Back Pain: Yes Hx Psychiatric Problems: No - Gastrointestinal Hx Ulcer: No Hx Gastroesophageal Reflux Disease: Yes - Endocrine Hx Renal Disease: No Hx End Stage Renal Disease: No Hx Cirrhosis: No Hx Liver Disease: No Hx Insulin Dependent Diabetes: No Hx Non-Insulin Dependent Diabetes: No Hx Thyroid Disease: No Hx Hypothyroidism: No Hx Hyperthyroidism: No - Hematic Hx Anemia: No Hx Sickle Cell Disease: No - Other Systems Hx Alcohol Use: No Hx Substance Use: No Hx Cancer: No Hx Obesity: Yes
--- NOTE | 2022-08-16 21:17 | Anesthesia Day of Surgery ---
Anesthesia Day of Surgery - Day of Surgery Patient Examined: Yes Patient H&P Reviewed: Yes Patient is NPO: Yes Beta Blockers: No Cardiac Clearance: No Pulmonary Clearance: No Edmond's Test: N/A
[2022-08-16] MEDS ORDERED: ACETAMINOPHEN 325 MG TAB PO PRN (21:25)
[2022-08-16] MEDS ORDERED: WITCH HAZEL/ GLYCERIN PAD TP PRN (21:25)
[2022-08-16] MEDS ORDERED: IBUPROFEN 600 MG TAB PO PRN (21:25)
[2022-08-16] MEDS ORDERED: LANOLIN/ZINC/DIMETHICONE (LANSINOH) 7 GM TP PRN (21:25)
[2022-08-16] MEDS ORDERED: KETOROLAC 30 MG/1 ML INJ IV PRN (21:25)
[2022-08-16] MEDS ORDERED: MORPHINE 2 MG/1 ML INJ IV PRN (21:25)
--- NOTE | 2022-08-16 21:30 | Progress Note ---
Spinal Anesthesia Block - Spinal Anesthesia Block Start Time: 19:30 Stop Time: 19:36 Performed by:: CAMILLA BLAIR Procedure: The patient was placed in a sitting position on the OR table and monitors applied. A timeout was performed immediately prior to the start of the procedure. The patient was Prepped and draped in a sterile fashion and the skin was localized with 3 mL 1% lidocaine at L[4]-L[5] interspace. An introducer was placed into the back between L4-L5 and a 25g spinal needle was advanced into the intrathecal space until clear, free flowing CSF was observed. 1.8cc of 0.75% hyperbaric bupivacaine + 5mcg Precedex was injected into the intrathecal space and the spinal needle was removed. The patient tolerated the procedure well and there were no immediate complications noted.
--- NOTE | 2022-08-16 21:31 | Progress Note ---
Regional Anesthesia Block - Regional Anesthesia Block Start Time: 21:07 Stop Time: 21:11 Performed By:: CAMILLA BLAIR Procedure: After her C/S was completed a time out was performed prior to the start of the procedure. The Trans Abdominal Plane was identified bilaterally via ultrasound. The skin was prepped bilaterally with chlorhexidine and a 22g stimuplex needle was advanced to the area between the internal oblique muscle and the trans abdominal plane. Marcaine 0.25% 30mlwas injected under ultrasound guidance on the left and right side. Negative aspiration every 5mL, There was no change in the patients heart rate or rhythm and the patient tolerated the procedure well. No apparent complications were observed.
--- NOTE | 2022-08-16 21:40 | Operative Report ---
Operative Report Operative Report: Date of surgery: 08/16/2022 Preoperative diagnoses: 38 weeks and 6 days, 2 previous sections, gestational diabetes, PIH, peritoneal adhesions Postoperative diagnoses: The same. Operation: Lower segment transverse delivery, lysis of adhesions Surgeon:Valeria Hopkins MD Facility Maintenance Technician: Linda Neil CRNA Anesthesia: Spinal block Estimated blood loss: 300 mL Complications: None Findings: Live baby girl, Apgars 8/9, weight 7 pounds 4 ounce. The ovaries, fallopian tubes and uterus were grossly normal. The inferior aspects of the greater omentum were adherent to the parietal peritoneum distal to the umbilical stump. Procedure in detail: The patient was taken to the operating room and given a spinal block. Patient was placed in the straight supine position and a Hernandez catheter was inserted. The patient was prepped in the abdomen. The drapes were placed. A timeout was done. With the go ahead from the silverware etcher, a Pfannenstiel incision was made. This incision was carried across the subcutaneous layer to the fascia which was also divided transversely. The recti abdominis muscle flaps were stripped from the fascia using a combination of blunt and sharp dissections. The muscles were in the midline to gain access to the anterior parietal peritoneum which was divided after excluding any underlying viscera. The access to the peritoneal cavity was then widened by manual stretching. The bladder blade was applied. The utero vesicle peritoneal flap was divided transversely allowing the bladder to be displaced caudally. The uterine incision was placed in the lower segment transversely. The uterine incision was carried to the decidual layer. The uterine incision was extended on both sides using the bandage scissors. The amniotic sac was ruptured with clear fluid. The head was lifted out of the false maternal pelvis and delivered through the incision using fundal pressure assisted with the Kiwi. The Kiwi application (x3) was expedited by widening the fascial opening. The airways were bulb suctioned beginning with the mouth. Continuing fundal pressure combined with traction on the mandibular processes of the jaw delivered the rest of the baby. The umbilical cord was double clamped and divided. The baby was carefully transferred to the pediatric team. The placenta was manually removed from the uterine cavity. The uterine cavity was explored and was empty of any placental remnants. The uterine incision was repaired in 2 layers with #1 Vicryl. The surgical line on the uterus was hemostatic. The adhesions were divided in between 2 pairs of Kellys, suture-ligated with #1 Vicryl. Blood and clots were cleared from the peritoneal cavity. The anterior parietal peritoneum was repaired with #1 Vicryl. The fascia was repaired with #1 Vicryl. The subcutaneous layer was made hemostatic using the Bovie before the skin was closed subcuticularly with 4-0 Vicryl. There were no complications. The estimated blood loss was 300 mL. All sponges and instrument counts were correct. Patient was safely transferred to the [facility] room.
[2022-08-16] MEDS: LACTATED RINGERS 1,000 ML IV SCH (23:45)
[2022-08-17] MEDS: KETOROLAC 30 MG/1 ML INJ IV PRN ×2 (02:10→09:00)
[2022-08-17] MEDS: LACTATED RINGERS 1,000 ML IV SCH (05:43)
[2022-08-17] MEDS: HYDROcodone/ACETAMINOPHEN 5-325 MG TAB PO PRN ×2 (05:44→16:32)
[2022-08-17] MEDS: ceFAZolin/NS 1 GM/50 ML 1 GM/50 ML BAG IV SCH ×2 (05:44→13:24)
--- NOTE | 2022-08-17 09:54 | Progress Note ---
Assessment and Plan A: POD # 1 - stable P: Continue post op care Subjective - Subjective Date of service: 08/17/22 Principal diagnosis: Repeat - PPOD # 1 Patient reports: appetite normal [place]: doing well Objective - Vital Signs Latest vital signs: Vital Signs Temp Pulse Resp BP BP Pulse Ox Pulse Ox 08/17/22 09:00 20 08/17/22 08:25 98.0 F 79 16 126/69 99 08/17/22 05:44 98 08/17/22 04:00 98 08/17/22 03:57 98.2 F 90 20 114/73 100 08/17/22 01:30 98 08/16/22 23:00 100 08/16/22 22:50 98.4 F 94 H 18 113/62 100 08/16/22 22:19 120/66 08/16/22 22:15 151/76 08/16/22 22:10 80 18 150/80 100 08/16/22 21:55 91 H 16 136/76 100 08/16/22 21:40 97.6 F 83 17 145/114 100 08/16/22 21:30 91 H 18 134/72 100 08/16/22 21:20 96 H 15 105/72 100 08/16/22 21:18 97.7 F 86 14 100 08/16/22 21:15 86 15 115/51 100 08/16/22 21:10 97.7 F 85 16 123/55 99 08/16/22 18:40 85 100 08/16/22 18:35 92 H 100 08/16/22 18:30 101 H 100 08/16/22 18:25 94 H 100 08/16/22 18:20 95 H 98 08/16/22 18:15 89 100 08/16/22 18:10 88 100 08/16/22 18:05 95 H 100 08/16/22 18:00 97 H 100 08/16/22 17:58 98.4 F 18 100 08/16/22 17:55 98 H 100 08/16/22 17:50 97 H 100 08/16/22 17:45 98 H 100 08/16/22 17:40 101 H 100 08/16/22 17:35 90 99 08/16/22 17:32 94 H 117/74 08/16/22 17:30 96 H 100 Intake and Output 08/16/22 08/17/22 08/17/22 22:59 06:59 14:59 Intake Total 1500 985.833 Output Total 500 600 Balance 1000 385.833 Intake: IV 1500 745.833 Lactated Ringers 1,000 ml 745.833 @ 125 mls/hr IV DIRECT JACQUELINE Rx#:[id number] Oral 240 Output: Urine 500 600 Indwelling Catheter 600 Uretheral (Hernandez) 400 Other: Total, Intake Amount 240 Total, Output Amount 600 Voiding Method Indwelling Catheter Weight 277 lb Estimated Blood Loss 200 - Exam Breasts: Present: deferred Cardiovascular: Present: Regular rate Lungs: Present: Clear to auscultation Abdomen: Present: soft Vulva: both: normal Uterus: Present: fundal height below umbilicus Extremities: Present: normal Deep Tendon Reflex Grade: Normal +2 - Labs Labs: Abnormal lab results 08/16/22 Range/Units 18:08 MCV 65 L (79-97) fl MCH 20 L (28-32) pg RDW 19.1 H (13.2-15.2) % [place] % (Auto) 10.0 H (0.0-7.3) % [place] # (Auto) 0.9 H (0.0-0.8) K/mm3
[2022-08-17] MEDS: PRENATAL VIT27-FE FUMARATE-FOLIC ACID VIT TAB PO SCH (10:00)
[2022-08-17 10:19] LABS: Hematocrit 27.9 % (30.3-42.9); Hemoglobin 8.5 gm/dl (10.1-14.3)
[2022-08-17] MEDS: IBUPROFEN 800 MG TAB PO PRN (16:35)
[2022-08-17] MEDS: MAGNESIUM HYDROXIDE (MOM) ORAL LIQD UDC PO PRN (20:53)
[2022-08-17] MEDS: SIMETHICONE 80 MG CHEW TAB PO PRN (21:04)
[2022-08-17 21:23] LABS: Hepatitis C Virus Antibody Non-Reactive (NonReactive)
--- NOTE | 2022-08-18 08:28 | Progress Note ---
Assessment and Plan A: POD # 1 - stable P: Discharge home in am Discharge instructions given Subjective - Subjective Date of service: 08/18/22 Principal diagnosis: Repeat - POD # 2 Patient reports: appetite normal : doing well Objective - Vital Signs Latest vital signs: Vital Signs Temp Pulse Resp BP Pulse Ox Pulse Ox 08/18/22 08:20 98 08/18/22 05:46 98 08/18/22 03:40 98 08/18/22 01:21 98.0 F 79 20 121/70 98 08/18/22 01:15 98 08/18/22 00:00 98 08/17/22 21:50 98 08/17/22 20:15 98 08/17/22 16:32 20 08/17/22 15:27 97.9 F 88 20 113/65 100 08/17/22 11:57 98.0 F 84 20 117/59 99 08/17/22 09:00 20 Intake and Output 08/17/22 08/18/22 08/18/22 22:59 06:59 14:59 Intake Total 240 240 Balance 240 240 Intake: Oral 240 240 Other: Total, Intake Amount 240 120 # Voids Void 1 1 - Exam Breasts: Present: deferred, mass Cardiovascular: Present: Other Abdomen: Present: soft Vulva: both: normal Uterus: Present: fundal height below umbilicus Extremities: Present: edema (1+) Deep Tendon Reflex Grade: Normal +2 - Labs Labs: Abnormal lab results 08/17/22 Range/Units 09:26 Hgb 8.5 L (10.1-14.3) gm/dl Hct 27.9 L (30.3-42.9) %
--- NOTE | 2022-08-18 08:30 | Discharge Summary ---
Providers - Providers Date of Admission: 08/16/22 20:36 Date of discharge: 08/19/22 Attending physician: CAYDEN MEAD MD Primary care physician: CAYDEN MEAD MD Hospitalization Reason for admission: section Delivery: Procedure: section Episiotomy: none Laceration: none Discharge diagnosis: IUP at term delivered [place] baby: female Hospital course: uneventful hospital course Condition at discharge: Good Disposition: 01 HOME / SELF CARE / HOMELESS Plan - Discharge Medications Prescriptions: Ibuprofen [Motrin] 800 mg PO Q8HR #30 tablet - Provider Discharge Summary Activity: routine, no sex for 6 weeks, no strenuous exercise Diet: routine Instructions: routine Additional instructions: [] Smoking cessation referral if applicable(refer to patient education folder for contact #) [] Refer to [facility] Booklet Call your doctor immediately for: * Fever > 100.5 * Heavy vaginal bleeding ( >1 pad per hour) * Severe persistent headache * Shortness of breath * Reddened, hot, painful area to leg or breast * Drainage or odor from incision. * Keep incision clean and dry at all times and follow doctor's instructions regarding bathing/showering - Follow up plan Follow up: CAYDEN MEAD MD [Primary Care Provider] - 14 Days
[2022-08-18] MEDS: HYDROcodone/ACETAMINOPHEN 5-325 MG TAB PO PRN ×3 (09:24→21:14)
[2022-08-18] MEDS: SIMETHICONE 80 MG CHEW TAB PO PRN (09:25)
[2022-08-18] MEDS: PRENATAL VIT27-FE FUMARATE-FOLIC ACID VIT TAB PO SCH (09:26)
[2022-08-18] MEDS: IBUPROFEN 800 MG TAB PO PRN ×2 (13:49)
[2022-08-18] MEDS: MAGNESIUM HYDROXIDE (MOM) ORAL LIQD UDC PO PRN (13:51)
[2022-08-18] MEDS ORDERED: FLEET ENEMA PR SCH (22:00)
[2022-08-19] MEDS: IBUPROFEN 800 MG TAB PO PRN (04:57)
[2022-08-19] MEDS: PRENATAL VIT27-FE FUMARATE-FOLIC ACID VIT TAB PO SCH (10:49)
[2022-08-19] MEDS: HYDROcodone/ACETAMINOPHEN 5-325 MG TAB PO PRN (10:52)
[2022-08-19 13:20] VITALS: BP 139/79
== END 2022-08-19 12:40 | disposition home or self-care (01) | DRG 766 ==
LOC: TRG 17:04 → APU 17:05 → OB 22:46
PROVIDERS: ADMIT Obstetrics & Gynecology Gynecology; ATTEND Obstetrics & Gynecology Gynecology
PROC: 10D00Z1 Extraction of Products of Conception, Low, Open Approach (ICD-10-PCS; principal; 2022-08-16)
DX: O13.4 Gestational [pregnancy-induced] hypertension without significant proteinuria, complicating childbirth (principal); Z3A.38 38 weeks gestation of pregnancy; Z37.0 Single live birth; O24.429 Gestational diabetes mellitus in childbirth, unspecified control; Z20.822 Contact with and (suspected) exposure to COVID-19; O34.211 Maternal care for low transverse scar from previous cesarean delivery; O99.62 Diseases of the digestive system complicating childbirth; K21.9 Gastro-esophageal reflux disease without esophagitis; K66.0 Peritoneal adhesions (postprocedural) (postinfection); Z88.0 Allergy status to penicillin
CPT/HCPCS: 36415; 85014; 85018; 85025; 86592; 86706; 86762; 86803; 86850; 86900; 86901; 87806; G0378; J3490; J0690; J1885; J2270; J2765; J7120; U0003